=== PATIENT | female | born 1990 | race Caucasian/White ===

== ENCOUNTER → 2018-09-08 17:41 | Outpatient (CLI) | payer OTHER, SELFPAY ==
--- NOTE | 2018-09-08 17:44 | DI.MRI.S_ITS ---
PROCEDURE: MR CERVICAL SPINE WO CON INDICATIONS: CERVICALGIA TECHNIQUE: Noncontrast sagittal T1 spin echo and T2 fast spin echo, sagittal STIR, foraminal oblique sagittal T2 fast spin echo, and axial gradient echo or T2 fast spin echo through the cervical spine. COMPARISON: None. FINDINGS: Image quality: Excellent. Alignment and Curvature: Straightening of the normal cervical lordosis. Bone Marrow: Marrow demonstrates normal overall signal. Spinal Cord: Visualized spinal cord has normal size and signal. No cerebellar tonsillar herniation. Paraspinous Soft Tissues: No paravertebral masses. Prevertebral soft tissues are normal in thickness. Nonspecific subcentimeter T2 hyperintensity involving the left lobe of thyroid for which further evaluation with dedicated ultrasound could be performed. C2-C3: Normal appearance. C3-C4: Normal appearance. C4-C5: Normal appearance. C5-C6: Bilateral uncovertebral arthropathy and posterior intervening disc osteophyte complex, with small central disc osteophyte protrusion. Minimal if any bilateral facet disease. Mild central canal narrowing with effacement of the anterior thecal sac although no definite mass effect on the cord. Mild right and no definite left foraminal stenosis. C6-C7: Minimal right foraminal narrowing otherwise no canal or left foraminal stenosis. C7-T1: Normal appearance. IMPRESSION: Mild C5-C6 disc degeneration with associated mild central canal narrowing. Mild right C5-6 foraminal narrowing. Minimal right C6-C7 foraminal narrowing. Straightening of the normal cervical lordosis. T2 hyperintense focus involving the left lobe of the thyroid. Further evaluation with dedicated ultrasound could be performed as clinically warranted. Him from Dictated by: Chino David M.D. on 09/09/2018 at 9:32 Approved by: Chino David M.D. on 09/09/2018 at 9:38
== END ==
PROVIDERS: Visit Provider Family Medicine
DX: M50.322 Other cervical disc degeneration at C5-C6 level (principal); M48.02 Spinal stenosis, cervical region
CPT/HCPCS: 72141

== ENCOUNTER 2018-09-26 16:56 | Emergency (ER) | payer OTHER, SELFPAY ==
[2018-09-26 17:11] VITALS: BP 143/101; PULSE 79; RESP 16; TEMP 36.5; O2SAT 100; BMI 19.5
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
[2018-09-26 18:52] VITALS: BP 124/90; PULSE 69; RESP 17; TEMP 36.6; O2SAT 99
== END 2018-09-26 18:53 | disposition home or self-care (01) ==
PROVIDERS: Emergency Provider Internal Medicine
DX: S16.1XXA Strain of muscle, fascia and tendon at neck level, initial encounter (principal)
CPT/HCPCS: 99282

== ENCOUNTER → 2020-05-13 15:38 | Outpatient (CLI) | payer OTHER, SELFPAY ==
--- NOTE | 2020-05-13 15:40 | DI.MRI.S_ITS ---
PROCEDURE: MR CERVICAL SPINE WO CON INDICATIONS: OTHER CERVICALGIA TECHNIQUE: Noncontrast sagittal T1 spin echo and T2 fast spin echo, sagittal STIR, foraminal oblique sagittal T2 fast spin echo, and axial gradient echo or T2 fast spin echo through the cervical spine. COMPARISON: [facility], MR, MR CERVICAL SPINE WO CON, 09/08/2018, 17:53. FINDINGS: Image quality: Excellent. Alignment and Curvature: There is normal bony alignment. Bone Marrow: Marrow demonstrates normal overall signal. Spinal Cord: Visualized spinal cord has normal size and signal. No cerebellar tonsillar herniation. Paraspinous Soft Tissues: No paravertebral masses. Prevertebral soft tissues are normal in thickness. C2-C3: Normal appearance. C3-C4: Normal appearance. C4-C5: Normal appearance. C5-C6: Mild degenerative disc height reduction and desiccation, small posterior disc bulge as was previously the case 09/08/18. The oblique view show mild foraminal stenosis at C5-6 due to facet hyperostosis, but no disc herniation has developed.. C6-C7: Normal appearance. C7-T1: Normal appearance. IMPRESSION: Stable finding of [id number] degenerative disc disease and mild facet osteoarthritis at C5-6 with secondary mild anterior spinal stenosis at that level and also minimal foraminal stenosis at C5-6 without definite nerve root impingement at time of MR scanning. Dictated by: Lance Purvis M.D. on 05/13/2020 at 16:27 Approved by: Lance Purvis M.D. on 05/13/2020 at 16:30
== END ==
PROVIDERS: Referring Provider Physical Medicine & Rehabilitation Pain Medicine; Visit Provider Physical Medicine & Rehabilitation Pain Medicine
DX: M50.20 Other cervical disc displacement, unspecified cervical region (principal); M50.322 Other cervical disc degeneration at C5-C6 level
CPT/HCPCS: 72141